=== PATIENT | male | born 1990 | race Caucasian/White ===

== ENCOUNTER 2017-06-19 19:51 | Observation (INO) | payer OTHER ==
[~2017-06-19] VITALS: Ht 182.9 cm; Wt 95.7 kg
[2017-06-19 20:10] LABS: BASOPHIL (%) 0.7 % (0-1); BASOPHIL COUNT 0.1 K/uL (0-0.1); EOSINOPHIL (%) 3.3 % (0-5); EOSINOPHIL COUNT 0.3 K/uL (0-0.3); HEMOGLOBIN 17.5 G/DL (12.5-16.6); IMMATURE GRANULOCYTE (%) 0.4 % (0.0-0.7); LYMPHOCYTE (%) 34.9 % (15-42); LYMPHOCYTE COUNT 2.9 K/uL (1.0-2.8); MCH 31.3 PG (29.0-34.0); MCV 89.4 FL (86-99); MONOCYTE COUNT 0.8 K/uL (0-0.8); NEUTROPHIL (%) 50.7 % (45-76); NEUTROPHIL COUNT 4.3 K/uL (1.8-6.4); PLATELET COUNT 225 K/uL (156-360); RBC DIS.WIDTH-CV 11.6 % (11.8-14.6); RBC DIS.WIDTH-SD 37.7 % (39-53); RED BLOOD COUNT 5.59 M/uL (4.00-5.50); WHITE BLOOD COUNT 8.4 K/uL (4.1-10.2)
[2017-06-19 20:34] LABS: AMYLASE 27 IU/L (1-118); CHLORIDE 106 MEQ/L (99-109); POTASSIUM 3.7 MEQ/L (3.7-5.4); SODIUM 141 MEQ/L (136-147)
[2017-06-19 20:59] LABS: GFR ESTIMATE (CALCULATED) > 59 mL/min/ (58.99-99999); GLUCOSE 85 mg/dL (70-99); LIPASE 25 U/L (1.0-51.0); UREA NITROGEN (BUN) 16 mg/dL (9-23)
[2017-06-19 21:00] LABS: SERUM ETHYL ALCOHOL < 10 mg/dL
[2017-06-20] MEDS ORDERED: AMINO ACID1 EACH PO (00:43)
[2017-06-20] MEDS ORDERED: WHEY PROTEIN P907 GM PO (00:43)
[2017-06-20] MEDS ORDERED: CLA 1,000 MG1000 MG PO (00:43)
[2017-06-20 01:35] VITALS: BP 115/66
[2017-06-20 07:58] VITALS: BP 113/59
[2017-06-20 12:36] VITALS: BP 109/62
[2017-06-20 15:52] VITALS: BP 115/56
[2017-06-20] MEDS ORDERED: TYLENOL ARTHRI650 MG PO (17:41)
[2017-06-20] MEDS ORDERED: MEDROL DOSEPAK4 MG PO (17:41)
[2017-06-20 17:45] LABS: APPEARANCE SL.HAZY ((CLEAR)); BILIRUBIN NEGATIVE; BLOOD NEGATIVE; COLOR YELLOW ((YELLOW)); GLUCOSE (STRIP) NEGATIVE; KETONES NEGATIVE; LEUKOCYTES NEGATIVE; NITRITE NEGATIVE; PROTEIN (STRIP) NEGATIVE; SPECIFIC GRAVITY 1.027 (1.000-1.030); UROBILINOGEN 0.2 MG/DL (0.2-1.0)
[2017-06-20 18:07] LABS: BENZODIAZEPINES, URINE SCREEN Negative (200 ng/mL)
[2017-06-20 18:41] LABS: BACTERIA NONE SEEN /HPF; EPITHELIAL CELLS NONE SEEN /HPF; MUCUS 3+ /LPF; RED BLOOD CELLS NONE SEEN /HPF (0-5); UCUL ADDED? NO; WHITE BLOOD CELLS 0-5 /HPF (0-5)
== END 2017-06-20 18:20 | disposition home or self-care (01) ==
LOC: TRA 19:51 → EDOF 06-20 00:25 → 5WEST 06-20 00:25 → EDOF 06-20 00:25 → ENRESERV 06-20 00:27 → 5WEST 06-20 01:24
PROVIDERS: Emergency Medicine; Hospitalist
DX: G89.11 Acute pain due to trauma (principal); M79.652 Pain in left thigh; M79.672 Pain in left foot; M79.662 Pain in left lower leg; R26.2 Difficulty in walking, not elsewhere classified; M25.552 Pain in left hip; H57.11 Ocular pain, right eye; M62.838 Other muscle spasm; M54.5 Low back pain; M54.2 Cervicalgia; M79.645 Pain in left finger(s); R20.2 Paresthesia of skin; S09.90XA Unspecified injury of head, initial encounter; V49.88XA Car occupant (driver) (passenger) injured in other specified transport accidents, initial encounter; Y92.411 Interstate highway as the place of occurrence of the external cause
CPT/HCPCS: 70450; 71260; 72125; 72129; 72132; 72148; 72192; 74177; 80048; 80306 90; 81003; 82150; 83690; 85025; 86850; 86900; 86901; 93005; 99281; 99285; G0378; G0480; J1885; J2270; J7509